=== PATIENT | male | born 1980 | race Caucasian/White ===

== ENCOUNTER 2024-09-12 09:16 | Emergency (ER) | payer SELFPAY ==
[2024-09-12 09:24] VITALS: BP 150/108
--- NOTE | 2024-09-12 10:40 | ED.GENMED ---
History of Present Illness
General
Chief Complaint: Chest Pain
Source: patient
Exam Limitations: none
Time Seen by Provider: 09/12/24 10:23
Nursing documentation reviewed up to this point in time: agreed with
History of Present Illness
History of Present Illness:
Patient is a 43-year-old male with past medical history of seizure disorder hypertension history of pericarditis(6 years ago after he had cholecystectomy )presents to the ER for evaluation of chest pain. Patient reports around 8:30 this morning
while driving to work he felt chest discomfort and felt a fluttering. He reports he has had this off and on for 6 years ever since having his pericarditis. His brand communications manager is aware. He reports it comes and goes away on its own.
With today's incident, he denies any injury .he denies any associated shortness of breath. He had fluttering. Denies shortness of breath. He does report left anterior chest feels sore with taking a deep breath or moving now. He denies any
actual shortness of breath. He reports he has felt this pounding pain in his left chest off and on since he had pericarditis 6 years ago. He has been seen by GI several times with no dx.
He is on medication for hypertension and seizures and is followed by Dr. Euceda , cardiology for history of pericarditis and management of his blood pressure.
He is a non smoker.
Past History
Past History
ED Past Medical History: HTN and Seizures
ED Past Surgical History: None
Social History
Tobacco: Smoker
Alcohol: Daily
Drug: Marijuana
Personal: Single
Living: with family
Employment: Not employed
Family History
Family History: Hypertension; Negative Diabetes, Early CAD, CAD, Asthma or Cancer
Review of Systems
Review of Systems
Allergies reviewed?: Yes
All Other Systems: ROS reviewed and negative except as documented in HPI and ROS
Constitutional: Reports no symptoms
Respiratory: Reports no symptoms
Cardiac: Reports chest pain and other ('fluttering ' )
ABD/GI: Reports no symptoms
: Reports no symptoms
Musculoskeletal: Reports no symptoms
Skin: Reports no symptoms
Neurological: Reports no symptoms
Psychiatric: Reports no symptoms
Phy Exam
General Physical Exam
General Presentation: no apparent distress
General age: appears stated age
General Skin: warm and dry
General Habitus: normal
General Mental: alert
General Hydration: appears well hydrated
Cardiovascular Exam
Cardiovascular Exam: regular rate/rhythm, no murmur and normal peripheral pulses
Pulmonary Exam
Pulmonary Exam: lungs clear, no respiratory distress and other (mild tenderness to left anterior chest )
Neurological Exam
Neurological Exam: alert and oriented x3
Musculoskeletal Exam
Musculoskeletal Exam: full ROM
Skin Exam
Skin Exam: normal color and warm/dry
Psychiatric Exam
Psychiatric Exam: normal mood/affect
Scores
Heart Score for Chest Pain Patients
STEMI patient?: Not applicable
Course
Orders/Labs/Results
Orders:
Orders
09/12/24 09:17
Electrocardiogram (*1) Urgent
Reason for Study: Chest Pain
EKG- Treatment ONCE
09/12/24 10:41
Cardiac Monitoring- Treatment ONCE
IV Insert/Care/Rem.- Treatment PRN
CR Chest - 2 Views Urgent
Comment:
Reason For Exam: cp
09/12/24 10:54
Complete Blood Count/With Diff Urgent
Comprehensive Metabolic Panel Urgent
Lyme Progressive Urgent
Comment: ADD ON
TSH Reflex To Free T4 Urgent
Troponin I Urgent
09/12/24 10:55
Add On- LAB Urgent
Tests Added?: lyme progressive
09/12/24 13:01
EKG- Treatment ONCE
09/12/24 13:31
EKG- Treatment ONCE
09/12/24 13:48
Troponin I Urgent
09/12/24 13:50
Electrocardiogram (*1) Urgent
Reason for Study: Chest Pain
Abnormal Lab Results
09/12/24
10:54
WBC 12.9 H 10^3/uL
(4.8-10.8)
Abs Immat Gran (auto) 0.1 H 10^3/uL
(0-0.05)
Absolute Neuts (auto) 10.3 H 10^3/uL
(1.4-6.5)
Absolute Monos (auto) 0.8 H 10^3/uL
(0.1-0.6)
Neutrophils % 80.2 H %
(42.2-75.2)
Lymphocytes % 12.6 L %
(20.5-51.1)
Glucose 103 H mg/dl
(70-99)
09/12/24 10:54
09/12/24 10:54
Vital Signs
Initial and Last Documented VS:
Initial Vital Signs
Temp Pulse Resp BP Pulse Ox
98.3 F 53 16 150/108 99
09/12/24 09:24 09/12/24 09:24 09/12/24 09:24 09/12/24 09:24 09/12/24 09:24
Last Documented Vital Signs
Temp Pulse Resp BP Pulse Ox
98.3 F 51 21 134/79 99
09/12/24 09:24 09/12/24 13:15 09/12/24 13:15 09/12/24 13:00 09/12/24 13:15
[employer]arn [employer]ister consulted with Physician
[employer]arn Twister consulted with physician?: Yes
Name of Physician Consulted: Jakob
MDM/Problems Addressed
Differential Diagnosis Includes:
Not limited to musculoskeletal pain less likely ACS
MDM/Problems Addressed:
As documented patient is a 43-year-old male who presented with left-sided chest pain with fluttering. Patient has had off-and-on chest pain for 6 years. He is followed by a brand communications manager outside of [facility] for history of pericarditis
6 years ago. He had a normal stress ordered by his brand communications manager several years ago. Patient presents awake alert anxious he is wondering what this pain is caused from because he has this off and on. He has had no acute findings on EKGs 2 negative
cardiac troponins. His x-rays are negative. He has no shortness of breath he is nontachycardic nonhypoxic no history PE DVT. No history DVT PE respecters. He was mildly tender on palpation. He has been in no acute distress here in the ER with
normal vital signs. His heart rate is in the 50s which is normal for patient.
Patient is well-appearing; stable for d/c home with outpt f/u with his brand communications manager.
*Radiology
Radiology exam reviewed: radiology read reviewed
*Pulse Oximetry
Patient hypoxic: no
*EKG
Interpreted by ED Provider?: Yes
Comparison EKG: no changes
Heart Rate: 62
Rate: normal
Rhythm: sinus
Ischemia: no ischemia
*Critical Care Note
Total Time (30-74mins, 75-104mins- exclusive of procedures): Not Applicable
ED Attending Note
-
Portions of this chart may have been created with voice recognition software.� Occasional wrong word or��sound alike� substitutions may have occurred due to the inherent limitations of voice recognition software.
Discharge Plan
Departure
Patient Disposition: Home (Routine Discharge)
Patient with high blood pressure during this ER visit?: Yes
Condition: Fair
Covid-19: Not Applicable
Discharge Problem:
Chest pain
Instructions: Chest Pain NON-[employer] Speech Therapist Follow Up
Prescriptions:
No Action
levetiracetam [Keppra] 250 mg Tablet
250 mg PO BID
Bystolic
1 tab PO DAILY
Norvasc
1 tab PO DAILY
famotidine [Pepcid] 20 mg tablet
20 mg PO DAILY Qty: 14 0RF
Referrals:
Pearl Jauregui DO [Family Provider] -
Activity Restrictions/Additional Instructions:
As discussed your cardiac blood work was normal.
Follow-up with your brand communications manager for reevaluation of symptoms please call to make an appointment soon as possible. Return if any worsening of symptoms
Interventions
Interventions:
*Risk Screen - Suicide Last Done: 09/12/24 09:24
*General Assessment Last Done: 09/12/24 09:24
*Neglect/Abuse Screening Last Done: 09/12/24 09:24
ED- Fall Risk Assessment Last Done: 09/12/24 10:58
*ED COVID-19 Vaccine History Last Done: 09/12/24 10:58
ED- Cardiac Assessment Last Done: 09/12/24 10:58
Discharge Date and Time
Discharge Date/Time: 09/12/24 13:25
Print Language: [place]ONG K[place]
[2024-09-12 10:47] VITALS: BMI 25.3
[2024-09-12 11:07] LABS: % Basophils 0.2 % (0-2); % Eosinophils 0.2 % (0-6); % Immature Granulocytes 0.5 % (0-0.5); % Lymphocytes 12.6 % (20.5-51.1); % Monocytes 6.3 % (1.7-9.3); % Neutrophils 80.2 % (42.2-75.2); Absolute Immature Granulocytes 0.1 10^3/uL (0-0.05); Absolute Lymphocytes 1.6 10^3/uL (1.2-3.4); Absolute Monocytes 0.8 10^3/uL (0.1-0.6); Absolute Neutrophils 10.3 10^3/uL (1.4-6.5); Hemoglobin 15.8 g/dL (13.0-18.0); Mean Corp Hgb Conc. 35.1 g/dL (33.0-37.0); Mean Corpuscular Hgb 30.7 pg (27.0-31.0); Mean Corpuscular Volume 87.4 fL (80.0-94.0); Mean Platelet Volume 8.9 fL (7.4-10.4); Nucleated Red Blood Cells % 0 % (-); Platelet Count 277 10^3/uL (130-400); Red Blood Cell Count 5.15 10^6/uL (4.70-6.10); Red Cell Dist. Width 12.8 % (11.5-14.5); White Blood Cell Count 12.9 10^3/uL (4.8-10.8)
[2024-09-12 11:21] LABS: ALT (SGPT) 30 U/L (0-50); AST (SGOT) 40 U/L (17-59); Albumin 4.2 g/dl (3.5-5.0); Alkaline Phosphatase 79 U/L (38-126); Blood Urea Nitrogen 17 mg/dl (9-20); Calcium 9.4 mg/dl (8.4-10.2); Carbon Dioxide 30 mmol/L (22-30); Chloride 104 mmol/L (98-107); Estimated Creatinine Clearance 122 ml/min; Glucose 103 mg/dl (70-99); Potassium 4.8 mmol/L (3.5-5.1); Sodium 138 mmol/L (135-145); Total Bilirubin 0.5 mg/dl (0.2-1.3); Total Protein 6.5 g/dl (6.3-8.2); eGFR > 60.00
[2024-09-12 11:32] LABS: Troponin I < 0.012 ng/ml
[2024-09-12 11:52] LABS: TSH Reflex To Free T4 1.22 uIU/ml (0.47-4.68)
[2024-09-12 12:53] VITALS: BP 129/80
[2024-09-12 13:00] VITALS: BP 134/79
[2024-09-12 14:22] LABS: Troponin I < 0.012 ng/ml
== END 2024-09-12 15:03 | disposition home or self-care (01) ==
LOC: EMR 09:16
PROVIDERS: Nurse Practitioner; EMERGENCY PHYSICIAN Emergency Medicine; FAMILY PHYSICIAN Family Medicine
DX: R07.89 Other chest pain (principal); I49.8 Other specified cardiac arrhythmias; I10 Essential (primary) hypertension; G40.909 Epilepsy, unspecified, not intractable, without status epilepticus; F17.200 Nicotine dependence, unspecified, uncomplicated; Z86.79 Personal history of other diseases of the circulatory system; Z90.49 Acquired absence of other specified parts of digestive tract
CPT/HCPCS: 99285; 71046; 80053; 84443; 84484; 85025; 86618; 93005